=== PATIENT | male | born 1995 | race Caucasian/White ===

== ENCOUNTER 2020-12-10 17:15 | Emergency (ER) | payer OTHER ==
[~2020-12-10] VITALS: Ht 198.1 cm; Wt 102.3 kg
[~2020-12-10 17:15] MED LIST: CLARITIN 1010 MG/TAB PO
[2020-12-10] MEDS ORDERED: BACTRIM DS 8001 TAB PO (19:23)
[2020-12-10 19:46] VITALS: BP 134/75; PULSE 71
== END 2020-12-10 19:47 | disposition home or self-care (01) ==
LOC: COL.ER 17:15
DX: S66.921A Laceration of unspecified muscle, fascia and tendon at wrist and hand level, right hand, initial encounter (principal); S61.401A Unspecified open wound of right hand, initial encounter; W29.8XXA Contact with other powered hand tools and household machinery, initial encounter

== ENCOUNTER → 2020-12-27 | Outpatient (CLI) | payer OTHER ==
[~2020-12-27] MED LIST changes: +BACTRIM DS 8001 TAB PO
[2020-12-27 13:07] VITALS: BP 121/79; PULSE 81; TEMP 98.7
== END ==
LOC: COL.ER 12:52
DX: Z48.02 Encounter for removal of sutures (principal)